=== PATIENT | female | born 1965 | race African-American/Black ===

== ENCOUNTER 2017-06-25 03:26 | Emergency (ER) | payer MEDICAID, OTHER ==
[~2017-06-25] VITALS: Ht 162.6 cm; Wt 77.0 kg
[2017-06-25 03:28] VITALS: BP 126/72
== END 2017-06-25 05:34 | disposition left against medical advice (07) ==
LOC: ER 03:26
DX: F10.10 Alcohol abuse, uncomplicated (principal); Z53.21 Procedure and treatment not carried out due to patient leaving prior to being seen by health care provider

== ENCOUNTER 2018-07-21 02:16 | Emergency (ER) | payer OTHER ==
[~2018-07-21] VITALS: Ht 157.5 cm; Wt 77.0 kg
[2018-07-21 02:19] VITALS: BP 168/78
== END 2018-07-21 03:54 | disposition left against medical advice (07) ==
LOC: ER 02:16
DX: M25.511 Pain in right shoulder (principal); R07.89 Other chest pain; Z53.21 Procedure and treatment not carried out due to patient leaving prior to being seen by health care provider